=== PATIENT | male | born 1985 | race Caucasian/White ===

== ENCOUNTER 2016-10-26 13:46 | Emergency (ER) | payer OTHER ==
--- NOTE | 2016-10-26 16:01 | DIAGNOSTIC IMAGING REPORT ---
PROCEDURE: CT ABDOMEN/PELVIS W/O CONTRAST INDICATION: Right flank pain, initial encounter TECHNIQUE: Noncontrast axial images were obtained of the entire abdomen and pelvis with sagittal and coronal reformations. COMPARISON: CT abdomen/pelvis 10/19/2011 FINDINGS: ABDOMEN: There are several bilateral 1 mm nonobstructing renal calculi. There is mild right hydronephrosis with no evidence of obstructing calculus, possibly due to a recently passed calculus. Left pelvic phleboliths are present. Lung base are clear. Heart size is normal. Liver, gallbladder, pancreas, spleen and adrenal glands are normal. Normal abdominal aorta. Normal appendix. Nonspecific bowel gas pattern. PELVIS: Normal prostate and bladder. No pelvic mass or inflammatory changes. No suspicious osseous lesions. IMPRESSION: 1. Mild right hydronephrosis without evidence of obstructing calculus, possibly from a recently passed calculus 2. Several 1 mm nonobstructing bilateral renal calculi 3. Results discussed with Rebeca Slaughter All CT scans at this facility use dose modulation, iterative reconstruction, and/or weight-based dosing when appropriate to reduce radiation dose to as low as reasonably achievable.
--- NOTE | 2016-10-26 16:14 | ED ORDER SUMMARY ---
..... Patient: DAYANA BRAVO OrderSheet [facility] VisitID: [id number] [address] [place] [address] 30y, M Registration Date/Time: 10/26/2016 ORDER SHEET Weight: 97.5 kg (stated) Allergies: No Known Drug Allergy GENERAL ORDERS: UA-Culture if indicated Urgent (13:59 10/26/2016 EInderbitzen R.N. verbal order read back to HBivens A.R.N.P.) (Ack 14:07 NHouse ER Tech1) (14:07 NHouse ER Tech1) CT Abd/Pel wo Cont Urgent (14:33 10/26/2016 HBivens A.R.N.P.) (Ack 14:43 NHouse ER Tech1) (15:03 LNations ER Tech1) Vitals (14:37 10/26/2016 HBivens A.R.N.P.) (14:57 LNations ER Tech1) MEDICATION ORDERS: Toradol IM 60 mg (NOW) (14:21 10/26/2016 HBivens A.R.N.P.) (14:25 EInderbitzen R.N.) Hydrocodone-APAP PO 5/325 mg (NOW, HIGH ALERT MEDICATION) (16:30 10/26/2016 EInderbitzen R.N. verbal order read back to HBivens A.R.N.P.) (16:31 EInderbitzen R.N.) Zofran ODT PO 4 mg (NOW) (16:30 10/26/2016 EInderbitzen R.N. verbal order read back to HBivens A.R.N.P.) (16:31 EInderbitzen R.N.) IV FLUIDS: ORDER SHEET NOTES: [Electronically signed by Bety Ornelas R.N. (19:31 10/26/2016)] [Electronically signed by Rebeca Slaughter.R.N.P. (22:24 10/26/2016)] [Electronically locked/signed by Bety Ornelas R.N. (19:10/26/2016)]
--- NOTE | 2016-10-26 16:14 | ED ORDER SUMMARY ---
..... Patient: DAYANA BRAVO OrderSheet [facility] VisitID: [id number] [address] [place] [address] 30y, M Registration Date/Time: 10/26/2016 ORDER SHEET Weight: 97.5 kg (stated) Allergies: No Known Drug Allergy GENERAL ORDERS: UA-Culture if indicated Urgent (13:59 10/26/2016 EInderbitzen R.N. verbal order read back to HBivens A.R.N.P.) (Ack 14:07 NHouse ER Tech1) (14:07 NHouse ER Tech1) CT Abd/Pel wo Cont Urgent (14:33 10/26/2016 HBivens A.R.N.P.) (Ack 14:43 NHouse ER Tech1) (15:03 LNations ER Tech1) Vitals (14:37 10/26/2016 HBivens A.R.N.P.) (14:57 LNations ER Tech1) MEDICATION ORDERS: Toradol IM 60 mg (NOW) (14:21 10/26/2016 HBivens A.R.N.P.) (14:25 EInderbitzen R.N.) Hydrocodone-APAP PO 5/325 mg (NOW, HIGH ALERT MEDICATION) (16:30 10/26/2016 EInderbitzen R.N. verbal order read back to HBivens A.R.N.P.) (16:31 EInderbitzen R.N.) Zofran ODT PO 4 mg (NOW) (16:30 10/26/2016 EInderbitzen R.N. verbal order read back to HBivens A.R.N.P.) (16:31 EInderbitzen R.N.) IV FLUIDS: ORDER SHEET NOTES: [Electronically signed by Bety Ornelas R.N. (19:31 10/26/2016)] [Electronically signed by Rebeca Slaughter.R.N.P. (22:24 10/26/2016)] [Electronically locked/signed by Bety Ornelas R.N. (19:10/26/2016)]
--- NOTE | 2016-10-26 16:14 | ED CLINICAL REPORT ---
Clinical Report - Physicians/Mid Levels [facility] [address] [place] [address] 10/26/2016 13:47 [id number] Time Seen: 14:05; initial patient contact, initial documentation, patient care assumed. Arrived- By private vehicle. Historian- patient. HISTORY OF PRESENT ILLNESS Chief Complaint: DYSURIA. This started last night and is still present. The problem is described as moderate. No penile discharge, urinary frequency, genital lesion, testicular pain or Reeder catheter problem. No inguinal swelling. He has had severe burning discomfort with urination. It is described as " painful " and has occurred during urination. He has had urgency of urination. He has had mild right-sided flank pain. Able to void. Not voiding only small amounts. The patient has had unprotected intercourse with a single partner several times (no concerns for std, says his only partner is his ). Sexual history is noncontributory. No homosexual activity. Similar symptoms previously: None. Recent medical care: Not recently seen/assessed. REVIEW OF SYSTEMS No fever, hematuria, vomiting, diarrhea or chest pain. No difficulty breathing. He has had flank pain and mild, constant abdominal pain. The pain is described as located in the right side of the abdomen. All systems otherwise negative, except as recorded above. PAST HISTORY See nurses notes. ( PROBLEMS: Enlarged prostate. Hypertension. Ureterolithiasis. --13:53 Bety Ornelas, R.N. ADDITIONAL SURGERIES: Tonsillectomy. --13:53 Bety Ornelas, R.N.). SOCIAL HISTORY Heavy tobacco smoker. No alcohol use or drug use. No recent travel. Is a local resident. FAMILY HISTORY Negative. ADDITIONAL NOTES The nursing notes have been reviewed with agreement regarding the chief complaint, HPI, ROS, PMH and patient medications and allergies. PHYSICAL EXAM Vital Signs: 10/26/2016 13:52 BP: 200/118. HR: 120. RR: 20. O2 saturation: 100%. Temp: 97.9 F. Pain level now: 07/25. Have been reviewed as abnormal and appear to be correct. Hypertensive. Tachycardic. Respiratory rate normal. Temperature normal. Oxygen saturation normal. Appearance: Alert. Oriented X3. No acute distress. ENT: Normal external inspection. Pharynx normal. Neck: Neck supple. CVS: Tachycardia (ventricular rate = 110). Heart sounds abnormal. Respiratory: No respiratory distress. Breath sounds normal. Abdomen: Soft and nontender. Bowel sounds normal. No organomegaly. No mass. Back: Normal external inspection. Skin: Skin warm and dry. Normal skin color. No rash. Normal skin turgor. Extremities: Extremities exhibit normal ROM. No lower extremity edema. Neuro: Oriented X 3. No motor deficit. No sensory deficit. LABS, X-RAYS, AND EKG Abdominal CT: . IMPRESSION: 1. Mild right hydronephrosis without evidence of obstructing calculus, possibly from a recently passed calculus 2. Several 1 mm nonobstructing bilateral renal calculi 3. Results discussed with Rebeca Slaughter All CT scans at this facility use dose modulation, iterative reconstruction, and/or weight-based dosing when appropriate to reduce radiation dose to as low as reasonably achievable. Electronically Final signed by:Bernardo Do MD 10/26/2016 4:01:29 PM. The study was interpreted by the radiologist and discussed with the radiologist. Interpretation time: 16:13. PROGRESS AND PROCEDURES Course of Care: 14:33 10/26/16. pt aware of urine results and need for ct 14:39 10/26/16. pt has very brief john, nothing alarming, see report for full details 1612. pt stated the shot helped take the edge off and relieved some of the pressure. 10/26/2016 14:57 BP: 167/99. HR: 114. O2 saturation: 98%. Vital Signs: have been reviewed as abnormal and appear to be correct. Hypertensive. Tachycardic. Patient counseled in person regarding the patient's stable condition, test results and diagnosis. 16:12. Differential Diagnosis: Other possible considerations: uti, pyelo, kidney stone, bph, std. Above considerations are based on history, physical exam, laboratory data and other information. Differential diagnosis was discussed with patient. Disposition: Discharged home in good and improved condition (16:14). Condition: good and stable. CLINICAL IMPRESSION Ureterolithiasis (multiple stones) in the right kidney and left kidney with renal colic and hematuria. No hydronephrosis, acute pyelonephritis or urinary tract infection. Essential hypertension. INSTRUCTIONS Drink plenty of fluids for the next 24 hours until better. (strain all urine). Warnings: Further evaluation is necessary (to reassess for Hypertension). It is very important to follow up with a physician. GENERAL WARNINGS: Return or contact your physician immediately if your condition worsens or changes unexpectedly, if not improving as expected, or if other problems arise. Specifically return if problem worsens. Prescription Medications: Zofran 4 mg: Take 1 orally every six hours as needed for nausea/vomiting. Dispense ten (10). No refills. Substitution is permissible. [place] 5 mg / 325 mg tablets: take 1 to 2 orally every 6 hours as needed for pain. Dispense fifteen (15). No refills. Substitution is permissible. Toradol 10 mg tablets: Take 1 tablet orally every 6 hours as needed. Dispense fifteen (15). No refills. Substitution is permissible. Flomax 0.4 mg: take 1 orally every 24 hours. Dispense fifteen (15). No refills. Substitution is permissible. Follow-up: Follow up with your doctor in about two days even if well. Call for an appointment. Summary of care provided to patient. Screening today revealed the patient's blood pressure to be in the hypertensive range. The patient should follow up with a primary care provider for blood pressure management. Understanding of the discharge instructions verbalized by patient. Follow-up with: Conrad Lamb MD, Urology, , [address] [place] [address], [id number] Follow up in about two days as needed. Call for an appointment. Summary of care provided to patient. (Electronically signed by Rebeca Slaughter A.R.N.P. 10/26/2016 22:24)
--- NOTE | 2016-10-26 16:14 | ED NURSING NOTES ---
Clinical Report - Nurses [facility] [address] [place] [address] 10/26/2016 13:47 Patient: DAYANA BRAVO TRIAGE Triage time 13:52 Oct 26 2016. Acuity: LEVEL 3. Chief Complaint: PAIN WITH URINATION. 13:52 10/26/16. --13:56 Bety Ornelas R.N. 13:52 10/26/16. BP: 200/118. HR: 120. RR: 20. O2 saturation: 100%. Temp: 97.9 F. Pain level now: 07/25. --13:56 Bety Ornelas R.N. Weight: 97.5 kg stated. Height/Length: 74 inches Per Patient. BMI: 27.6. --13:52 Bety Ornelas R.N. Medications Lisinopril Oral. --13:52 Bety Ornelas R.N. AmLODIPine Besylate Oral. --13:52 Bety Ornelas R.N. Medication/allergy information source: the patient. --13:56 Bety Ornelas R.N. Allergies No Known Drug Allergy. --13:52 Bety Ornelas R.N. History Arrived by private vehicle. Historian: patient. This started last night. He has had discomfort with urination and urgency of urination. No fever. Treatment BALLISTICS TESTER: None. PAST MEDICAL HX: Immunizations: seasonal influenza. SOCIAL HX: Heavy tobacco smoker- 1 pack per day. No alcohol use or drug use. No infectious disease exposure. ABUSE ASSESSMENT: No report of abuse. --13:56 Bety Ornelas R.N. PROBLEMS: Enlarged prostate. Hypertension. Ureterolithiasis. --13:53 Bety Ornelas R.N. ADDITIONAL SURGERIES: Tonsillectomy. --13:53 Bety Ornelas R.N. Interventions ID band on patient. --13:56 Bety Ornelas R.N. PHYSICAL ASSESSMENT 13:59 10/26/16. GENERAL / NEURO / PSYCH: Alert. Oriented X 4. HEENT: Mucous membranes are pink. RESPIRATORY: Respirations not labored. Breath sounds within normal limits. CVS: Capillary refill less than 2 seconds. GI / : Abdomen soft. Pain with urination. He has had frequency of urination. Urgency of urination. SKIN: Skin is warm and dry. --13:59 Bety Ornelas R.N. NURSING PROGRESS NOTES 13:52 10/26/16. The initial plan of care for this patient includes an assessment with efforts to address the presence of pain; impairment of the genitourinary system. This plan of care was discussed with the patient. Reassurance given. Two patient identifiers checked. Call light placed in reach. Side rails up x 1. Bed placed in lowest position. Brakes of bed on. Patient ready for evaluation. --13:59 Bety Ornelas R.N. 14:02 10/26/16. Patient ID band checked for patient name and birthdate: patient confirmed. Instructions provided to collect clean catch urine and patient verbalized understanding. Clean catch urine collected with return of giovanni-colored clear urine; sample sent to lab for urinalysis. Specimen labeled in the presence of the patient. --14:02 Bety Ornelas R.N. 14:24 10/26/2016 Toradol (Ketorolac Tromethamine) IM 60 mg given. Given in the right gluteus martinez. Allergies verified and confirmed 5 rights. --14:25 Bety Ornelas R.N. 14:57 10/26/16. BP: 167/99. HR: 114. O2 saturation: 98%. --14:57 Zuleika Parra ER Tech1 15:21 10/26/16. The patient is calm and resting quietly. Overall patient status is improved- he states feels better. Patient waiting for CT results and disposition. --15:21 Bety Ornelas R.N. 16:12 10/26/16. ( Patient now requesting more pain medication). --16:12 Bety Ornelas R.N. 16:30 10/26/2016 Hydrocodone-APAP (Hydrocodone-Acetaminophen) PO 5/325 mg Tablets 1 tab given. Allergies verified, confirmed 5 rights and sedative warning given to the patient. --16:31 Bety Ornelas R.N. 16:30 10/26/2016 Zofran ODT (Ondansetron) PO Oral Disintegrating Tablets 4 mg given. Allergies verified and confirmed 5 rights. --16:31 Bety Ornelas R.N. DISPOSITION / DISCHARGE 16:31 10/26/16. Departure time: 16 :Oct 26 2016. Condition at departure: improved and stable. The goals identified in the patient's plan of care were met. No learning barriers present. Discharge instructions provided and reviewed with the patient. Reviewed medication(s) side effects, precautions, dosing and course information. Prescription(s) given to the patient. Reviewed fever care instructions. Reviewed referral to a urologist and primary care physician for followup. Patient verbalized understanding. Written instructions provided in Spanish. The patient was discharged home and accompanied by family. He left the Emergency Department ambulatory and via private vehicle. Family member driving. FALL RISK ASSESSMENT: Fall risk assessment completed. No fall risk identified. --19:30 Bety Ornelas R.N. 14:57 10/26/16. BP: 167/99. HR: 114. O2 saturation: 98%. --19:30 Bety Ornelas R.N. Locked/Released at 10/26/2016 19:31 by Bety Ornelas R.N.
--- NOTE | 2016-10-26 22:25 | ED MAR SUMMARY ---
..... Medication Administration Record [facility] [address] [place] [address] Patient: DAYANA BRAVO Visit ID: [id number] 30y, M Weight: 97.5 kg Height/Length: 74 in BMI: 27.6 ALLERGIES: No Known Drug Allergy Given 14:24 10/26/2016 Bety Ornelas R.N. Medication Administered: TORADOL [IM] (KETOROLAC TROMETHAMINE), Dose: 60 mg IM. Medication Ordered: Toradol IM 60 mg (NOW). Given 16:30 10/26/2016 Bety Ornelas R.N. Medication Administered: HYDROCODONE-APAP [PO] (HYDROCODONE-ACETAMINOPHEN), Dose: 1 tab 5/325 mg Tablets PO. Medication Ordered: Hydrocodone-APAP PO 5/325 mg (NOW, HIGH ALERT MEDICATION). Given 16:30 10/26/2016 Bety Ornelas R.NSita Medication Administered: ZOFRAN ODT [PO] (ONDANSETRON), Dose: 4 mg Oral Disintegrating Tablets PO. Medication Ordered: Zofran ODT PO 4 mg (NOW).
--- NOTE | 2016-10-26 22:25 | ED MED RECONCILIATION SUMMARY ---
Patient: DAYANA BRAVO Medication Reconciliation Report [facility] VisitID: [id number] [address] [place] [address] 30y, M Registration Date/Time: 10/26/2016 Weight: 97.5 kg Height/Length: 74 in. BMI: 27.6 ALLERGIES: No Known Drug Allergy The patient's Home Medications are listed below: THE FOLLOWING MEDICATIONS NEED TO BE RECONCILED: AmLODIPine Besylate Oral Lisinopril Oral The source(s) of the original Home Medication information: patient The following Medications were given to the patient in the Emergency Department: Toradol [IM] IM 60 mg, administered: 10/26/2016 2:24:00 PM Hydrocodone-APAP [PO] PO 1 tab, administered: 10/26/2016 4:30:00 PM Zofran ODT [PO] PO 4 mg, administered: 10/26/2016 4:30:00 PM The following Medications were prescribed to the patient: Zofran 4 mg: Take 1 orally every six hours as needed for nausea/vomiting. Dispense ten (10). No refills. Substitution is permissible. -- Rebeca Slaughter, A.R.N.P. [place] 5 mg / 325 mg tablets: take 1 to 2 orally every 6 hours as needed for pain. Dispense fifteen (15). No refills. Substitution is permissible. -- Rebeca Slaughter, A.R.N.P. Toradol 10 mg tablets: Take 1 tablet orally every 6 hours as needed. Dispense fifteen (15). No refills. Substitution is permissible. -- Rebeca Slaughter, A.R.N.P. Flomax 0.4 mg: take 1 orally every 24 hours. Dispense fifteen (15). No refills. Substitution is permissible. -- Rebeca Slaughter, A.R.N.P.
--- NOTE | 2016-10-26 22:25 | ED DISCHARGE INSTRUCTIONS ---
Patient: DAYANA BRAVO General Instructions [facility] VisitID: [id number] [place] [address] 30y, M Registration Date/Time: 10/26/2016 Ureterolithiasis (multiple stones) in the right kidney and left kidney with renal colic and hematuria. No hydronephrosis, acute pyelonephritis or urinary tract infection. Essential hypertension. INSTRUCTIONS Drink plenty of fluids for the next 24 hours until better. (strain all urine). Warnings: Further evaluation is necessary (to reassess for Hypertension). It is very important to follow up with a physician. GENERAL WARNINGS: Return or contact your physician immediately if your condition worsens or changes unexpectedly, if not improving as expected, or if other problems arise. Specifically return if problem worsens. Prescription Medications: Zofran 4 mg: Take 1 orally every six hours as needed for nausea/vomiting. Dispense ten (10). No refills. Substitution is permissible. [place] 5 mg / 325 mg tablets: take 1 to 2 orally every 6 hours as needed for pain. Dispense fifteen (15). No refills. Substitution is permissible. Toradol 10 mg tablets: Take 1 tablet orally every 6 hours as needed. Dispense fifteen (15). No refills. Substitution is permissible. Flomax 0.4 mg: take 1 orally every 24 hours. Dispense fifteen (15). No refills. Substitution is permissible. Follow-up: Follow up with your doctor in about two days even if well. Call for an appointment. Summary of care provided to patient. Screening today revealed the patient's blood pressure to be in the hypertensive range. The patient should follow up with a primary care provider for blood pressure management. Understanding of the discharge instructions verbalized by patient. Follow-up with: Conrad Lamb MD, Urology, , [address] [place] [address], [facility], [id number] Follow up in about two days as needed. Call for an appointment. Summary of care provided to patient. ADDITIONAL INFORMATION Kidney Stone (W/ Colic) The sharp cramping pain and nausea/vomiting that you have is due to a small stone which has formed in the kidney and is now passing down a narrow tube (ureter) on its way to your bladder. Once it reaches your bladder, the pain will stop. The stone may pass in your urine stream in one piece. [The size may be 1/16" to 1/4" (1-6mm)]. Or, the stone may also break up into lianne fragments which you may not even notice. Once you have had a kidney stone, you are at risk for developing another one in the future. Home Care: Drink plenty of fluids (at least 8 to 10 glasses of water a day). Most stones will pass on their own, but may take from a few hours to a few days. Sometimes the stone is too large to pass by itself and special methods will have to be used to remove the stone. Each time you urinate, do so in a jar. Pour the urine from the jar through the strainer and into the toilet. Continue doing this until 24 hours after your pain stops. By then, if there was a kidney stone, it should pass from your bladder. Some stones dissolve into sand-like particles and pass right through the strainer. In that case, you wont ever see a stone. Save any stone that you find in the strainer and bring it to your doctor for analysis. It may be possible to prevent certain types of stones from forming. Therefore, it is important to know what kind of stone you have. Try to stay as active as possible since this will help the stone pass. Do not stay in bed unless your pain prevents you from getting up. You may notice a red, pink or brown color to your urine. This is normal while passing a kidney stone. Follow Up with your doctor or return to this facility if the pain lasts more than 48 hours. Get Prompt Medical Attention if any of the following occur: Pain that is not controlled by the medicine given Repeated vomiting or unable to keep down fluids Weakness, dizziness or fainting Fever of 100.4F (38C) or higher, or as directed by your healthcare provider Passage of solid red or brown urine (can't see through it) or urine with lots of blood clots Unable to pass urine for 8 hours and increasing bladder pressure Blood In The Urine Blood in the urine ("hematuria") has many possible causes. If it occurs after an injury (such as a car accident or fall), it is most often a sign of bruising to the kidney or bladder. Common medical causes of blood in the urine include urinary tract infection, kidney stone, inflammation, tumors, or certain other diseases of the kidney or bladder. Menstruation can cause blood to appear in the urine sample, although it is not coming from the urinary tract. If only a trace amount of blood is present, it will show up on the urine test, even though the urine may be yellow and not pink or red. This may occur with any of the above conditions, as well as heavy exercise or high fever. In this case, your doctor may want to repeat the urine test on another day. This will show if the blood is still present. If so, then other tests can be done to find out the cause. Home Care: If your urine does not appear bloody (pink, brown or red) then you do not need to restrict your activity in any way. If you can see blood in your urine, rest and avoid heavy exertion until your next exam. Do not use aspirin or anti-inflammatory medicine like ibuprofen (Motrin, Advil) or naproxen (Naprosyn, Aleve). These thin the blood and may increase bleeding. Follow Up with your doctor or as advised by our staff. If you were injured and had blood in your urine, you should have a repeat urine test in 1-2 days. Contact your doctor or return to this facility for this test. [NOTE: A radiologist will review any X-rays that were taken. We will notify you of any new findings that may affect your care.] Get Prompt Medical Attention if any of the following occur: Bright red blood or blood clots in the urine (if a new symptom) Weakness, dizziness or fainting New groin, abdominal or back pain Fever of 100.4F (38C) or higher, or as directed by your healthcare provider Repeated vomiting Bleeding from nose, gums or easy bruising High Blood Pressure -- To Be Confirmed [No Tx] Your blood pressure was higher today than normal. Sometimes anxiety or pain can cause a temporary rise in blood pressure that later returns to normal. If your blood pressure is high on one measurement, this does not mean that you have hypertension (a chronic illness). However, you must have your blood pressure measured again within the next few days to find out if its still high. A normal blood pressure is 120/80 or less. The first (top) number is the "systolic" pressure. The second (bottom) number is the "diastolic" pressure. Hypertension exists when either the top number is 140 or higher, OR the bottom number is 90 or higher on repeated measurements. Blood pressure in the range of 120-140 (systolic) or 80-89 (diastolic) is considered "pre-hypertension". This means your are at risk for getting hypertension. You should have regular blood pressure checks to be sure your blood pressure is not rising. Home Care: Measure your blood pressure on 3 different days and write down the results. This can be done at your doctor's office or this facility. Some pharmacies and grocery stores offer automated blood pressure machines for your use. Follow Up: If your blood pressure is "high" (over 120/80) on 2 out of 3 days, you will need to follow up with your doctor for further evaluation and treatment. DO NOT PUT THIS OFF! Untreated high blood pressure increases the risk for heart attack, also known as acute myocardial infarction, or AMI, and stroke. It is a treatable condition. Get Prompt Medical Attention if any of the following occur: Chest pain or shortness of breath Severe headache Throbbing or rushing sound in the ears Nosebleed Sudden severe abdominal pain Extreme drowsiness, confusion or fainting Dizziness or vertigo (dizziness with spinning sensation) Weakness of an arm or leg or one side of the face Difficulty with speech or vision Ondansetron Oral disintegrating tablet What is this medicine? ONDANSETRON (on MEGHANN se regine) is used to treat nausea and vomiting caused by chemotherapy. It is also used to prevent or treat nausea and vomiting after surgery. How should I use this medicine? These tablets are made to dissolve in the mouth. Do not try to push the tablet through the foil backing. With dry hands, peel away the foil backing and gently remove the tablet. Place the tablet in the mouth and allow it to dissolve, then swallow. While you may take these tablets with water, it is not necessary to do so. Talk to your tea tree farm worker regarding the use of this medicine in children. Special care may be needed. What side effects may I notice from receiving this medicine? Side effects that you should report to your doctor or health complex care nurse practitioner as soon as possible: allergic reactions like skin rash, itching or hives, swelling of the face, lips, or tongue breathing problems dizziness fast or irregular heartbeat feeling faint or lightheaded, falls fever and chills swelling of the hands and feet tightness in the chest Side effects that usually do not require medical attention (report to your doctor or health complex care nurse practitioner if they continue or are bothersome): constipation or diarrhea headache What may interact with this medicine? Do not take this medicine with any of the following medications: -apomorphine -cisapride -dofetilide -dronedarone -pimozide -thioridazine -ziprasidone This medicine may also interact with the following medications: -carbamazepine -phenytoin -rifampicin -tramadol -other medicines that prolong the QT interval (cause an abnormal heart rhythm) What if I miss a dose? If you miss a dose, take it as soon as you can. If it is almost time for your next dose, take only that dose. Do not take double or extra doses. Where should I keep my medicine? Keep out of the reach of children. Store between 2 and 30 degrees C (36 and 86 degrees F). Throw away any unused medicine after the expiration date. What should I tell my health care provider before I take this medicine? They need to know if you have any of these conditions: heart disease history of irregular heartbeat liver disease low levels of magnesium or potassium in the blood an unusual or allergic reaction to ondansetron, granisetron, other medicines, foods, dyes, or preservatives or trying to get breast-feeding What should I watch for while using this medicine? Check with your doctor or health complex care nurse practitioner as soon as you can if you have any sign of an allergic reaction. Hydrocodone Bitartrate, Acetaminophen Oral tablet What is this medicine? ACETAMINOPHEN; HYDROCODONE (a set a LEILA marilynn fen; sean droe KOE done) is a pain reliever. It is used to treat mild to moderate pain. How should I use this medicine? Take this medicine by mouth. Swallow it with a full glass of water. Follow the directions on the prescription label. If the medicine upsets your stomach, take the medicine with food or milk. Do not take more than you are told to take. Talk to your tea tree farm worker regarding the use of this medicine in children. This medicine is not approved for use in children. What side effects may I notice from receiving this medicine? Side effects that you should report to your doctor or health complex care nurse practitioner as soon as possible: allergic reactions like skin rash, itching or hives, swelling of the face, lips, or tongue breathing problems confusion feeling faint or lightheaded, falls stomach pain yellowing of the eyes or skin Side effects that usually do not require medical attention (report to your doctor or health complex care nurse practitioner if they continue or are bothersome): nausea, vomiting stomach upset What may interact with this medicine? alcohol antihistamines isoniazid medicines for depression, anxiety, or psychotic disturbances medicines for sleep muscle relaxants naltrexone narcotic medicines (opiates) for pain phenobarbital ritonavir tramadol What if I miss a dose? If you miss a dose, take it as soon as you can. If it is almost time for your next dose, take only that dose. Do not take double or extra doses. Where should I keep my medicine? Keep out of the reach of children. This medicine can be abused. Keep your medicine in a safe place to protect it from theft. Do not share this medicine with anyone. Selling or giving away this medicine is dangerous and against the law. Store at room temperature between 15 and 30 degrees C (59 and 86 degrees F). Protect from light. Keep container tightly closed. Throw away any unused medicine after the expiration date. Discard unused medicine and used packaging carefully. Pets and children can be harmed if they find used or lost packages. What should I tell my health care provider before I take this medicine? They need to know if you have any of these conditions: brain tumor Crohn's disease, inflammatory bowel disease, or ulcerative colitis drink more than 3 alcohol-containing drinks per day drug abuse or addiction head injury heart or circulation problems kidney disease or problems going to the bathroom liver disease lung disease, asthma, or breathing problems an unusual or allergic reaction to acetaminophen, hydrocodone, other opioid analgesics, other medicines, foods, dyes, or preservatives or trying to get breast-feeding What should I watch for while using this medicine? Tell your doctor or health complex care nurse practitioner if your pain does not go away, if it gets worse, or if you have new or a different type of pain. You may develop tolerance to the medicine. Tolerance means that you will need a higher dose of the medicine for pain relief. Tolerance is normal and is expected if you take the medicine for a long time. Do not suddenly stop taking your medicine because you may develop a severe reaction. Your body becomes used to the medicine. This does NOT mean you are addicted. Addiction is a behavior related to getting and using a drug for a non-medical reason. If you have pain, you have a medical reason to take pain medicine. Your doctor will tell you how much medicine to take. If your doctor wants you to stop the medicine, the dose will be slowly lowered over time to avoid any side effects. You may get drowsy or dizzy when you first start taking the medicine or change doses. Do not drive, use machinery, or do anything that may be dangerous until you know how the medicine affects you. Stand or sit up slowly. There are different types of narcotic medicines (opiates) for pain. If you take more than one type at the same time, you may have more side effects. Give your health care provider a list of all medicines you use. Your doctor will tell you how much medicine to take. Do not take more medicine than directed. Call emergency for help if you have problems breathing. The medicine will cause constipation. Try to have a bowel movement at least every 2 to 3 days. If you do not have a bowel movement for 3 days, call your doctor or health complex care nurse practitioner. Too much acetaminophen can be very dangerous. Do not take Tylenol (acetaminophen) or medicines that contain acetaminophen with this medicine. Many non-prescription medicines contain acetaminophen. Always read the labels carefully. Ketorolac Tromethamine Oral tablet What is this medicine? KETOROLAC (makenzie toe ROLE ak) is a non-steroidal anti-inflammatory drug (NSAID). It is used for a short while to treat moderate to severe pain, including pain after surgery. It should not be used for more than 5 days. How should I use this medicine? Take this medicine by mouth with a full glass of water. Follow the directions on the prescription label. Take your medicine at regular intervals. Do not take your medicine more often than directed. Do not take more than the recommended dose. A special MedGuide will be given to you by the pharmacist with each prescription and refill. Be sure to read this information carefully each time. Talk to your tea tree farm worker regarding the use of this medicine in children. While this drug may be prescribed for children as young as 16 years of age for selected conditions, precautions do apply. Patients over 65 years old may have a stronger reaction and need a smaller dose. What side effects may I notice from receiving this medicine? Side effects that you should report to your doctor or health complex care nurse practitioner as soon as possible: allergic reactions like skin rash, itching or hives, swelling of the face, lips, or tongue black or tarry stools breathing problems changes in vision chest pain high blood pressure nausea or vomiting redness, blistering, peeling or loosening of the skin, including inside the mouth severe abdominal pain slurred speech or weakness on one side of the body unexplained weight gain or swelling unusual bleeding or bruising unusually weak or tired yellowing of eyes or skin Side effects that usually do not require medical attention (report to your doctor or health complex care nurse practitioner if they continue or are bothersome): diarrhea dizziness headache heartburn What may interact with this medicine? Do not take this medicine with any of the following medications: aspirin and aspirin-like medicines cidofovir methotrexate NSAIDs, medicines for pain and inflammation, like ibuprofen or naproxen pemetrexed probenecid This medicine may also interact with the following medications: alcohol alendronate alprazolam carbamazepine cyclosporine diuretics flavocoxid fluoxetine ginkgo lithium medicines for high blood pressure like enalapril medicines that affect platelets like pentoxifylline medicines that treat or prevent blood clots like heparin, warfarin muscle relaxants phenytoin steroid medicines like prednisone or cortisone thiothixene What if I miss a dose? If you miss a dose, take it as soon as you can. If it is almost time for your next dose, take only that dose. Do not take double or extra doses. Where should I keep my medicine? Keep out of the reach of children. Store at room temperature between 20 and 25 degrees C (68 and 77 degrees F). Throw away any unused medicine after the expiration date. What should I tell my health care provider before I take this medicine? They need to know if you have any of these conditions: asthma bleeding problems like hemophilia cigarette smoker drink more than 3 alcohol containing drinks a day heart disease or circulation problems such as heart failure or leg edema (fluid retention) high blood pressure kidney disease liver disease stomach bleeding or ulcers an unusual or allergic reaction to ketorolac, aspirin, other NSAIDs, other medicines, foods, dyes, or preservatives or trying to get breast-feeding What should I watch for while using this medicine? Tell your doctor or health complex care nurse practitioner if your pain does not get better. Talk to your doctor before taking another medicine for pain. Do not treat yourself. This medicine does not prevent heart attack or stroke. In fact, this medicine may increase the chance of a heart attack or stroke. The chance may increase with longer use of this medicine and in people who have heart disease. If you take aspirin to prevent heart attack or stroke, talk with your doctor or health complex care nurse practitioner. Do not take medicines such as ibuprofen and naproxen with this medicine. Side effects such as stomach upset, nausea, or ulcers may be more likely to occur. Many medicines available without a prescription should not be taken with this medicine. This medicine can cause ulcers and bleeding in the stomach and intestines at any time during treatment. Do not smoke cigarettes or drink alcohol. These increase irritation to your stomach and can make it more susceptible to damage from this medicine. Ulcers and bleeding can happen without warning symptoms and can cause . You may get drowsy or dizzy. Do not drive, use machinery, or do anything that needs mental alertness until you know how this medicine affects you. Do not stand or sit up quickly, especially if you are an older patient. This reduces the risk of dizzy or fainting spells. This medicine can cause you to bleed more easily. Try to avoid damage to your teeth and gums when you brush or floss your teeth. You have been given the following additional information: Kidney Stone W/ Colic Hematuria Hypertension, To Be Confirmed Ondansetron Oral disintegrating tablet Hydrocodone Bitartrate, Acetaminophen Oral tablet Ketorolac Tromethamine Oral tablet (Electronically signed by Rebeca Slaughter A.R.N.P. 10/26/2016 22:24)
--- NOTE | 2016-10-26 22:25 | ED MAR SUMMARY ---
..... Medication Administration Record [facility] [address] [address] Patient: DAYANA BRAVO Visit ID: [id number] 30y, M Weight: 97.5 kg Height/Length: 74 in BMI: 27.6 ALLERGIES: No Known Drug Allergy Given 14:24 10/26/2016 Bety Ornelas R.N. Medication Administered: TORADOL [IM] (KETOROLAC TROMETHAMINE), Dose: 60 mg IM. Medication Ordered: Toradol IM 60 mg (NOW). Given 16:30 10/26/2016 Bety Ornelas R.N. Medication Administered: HYDROCODONE-APAP [PO] (HYDROCODONE-ACETAMINOPHEN), Dose: 1 tab 5/325 mg Tablets PO. Medication Ordered: Hydrocodone-APAP PO 5/325 mg (NOW, HIGH ALERT MEDICATION). Given 16:30 10/26/2016 Bety Ornelas R.NSita Medication Administered: ZOFRAN ODT [PO] (ONDANSETRON), Dose: 4 mg Oral Disintegrating Tablets PO. Medication Ordered: Zofran ODT PO 4 mg (NOW).
--- NOTE | 2016-10-26 22:25 | ED MED RECONCILIATION SUMMARY ---
Patient: DAYANA BRAVO Medication Reconciliation Report [facility] VisitID: [id number] [address] [place] [address] 30y, M Registration Date/Time: 10/26/2016 Weight: 97.5 kg Height/Length: 74 in. BMI: 27.6 ALLERGIES: No Known Drug Allergy The patient's Home Medications are listed below: THE FOLLOWING MEDICATIONS NEED TO BE RECONCILED: AmLODIPine Besylate Oral Lisinopril Oral The source(s) of the original Home Medication information: patient The following Medications were given to the patient in the Emergency Department: Toradol [IM] IM 60 mg, administered: 10/26/2016 2:24:00 PM Hydrocodone-APAP [PO] PO 1 tab, administered: 10/26/2016 4:30:00 PM Zofran ODT [PO] PO 4 mg, administered: 10/26/2016 4:30:00 PM The following Medications were prescribed to the patient: Zofran 4 mg: Take 1 orally every six hours as needed for nausea/vomiting. Dispense ten (10). No refills. Substitution is permissible. -- Rebeca Slaughter, A.R.N.P. [place] 5 mg / 325 mg tablets: take 1 to 2 orally every 6 hours as needed for pain. Dispense fifteen (15). No refills. Substitution is permissible. -- Rebeca Slaughter, A.R.N.P. Toradol 10 mg tablets: Take 1 tablet orally every 6 hours as needed. Dispense fifteen (15). No refills. Substitution is permissible. -- Rebeca Slaughter, A.R.N.P. Flomax 0.4 mg: take 1 orally every 24 hours. Dispense fifteen (15). No refills. Substitution is permissible. -- Rebeca Slaughter, A.R.N.P.
== END 2016-10-26 16:31 | disposition home or self-care (01) ==
LOC: ED SRH 13:46
DX: N20.2 Calculus of kidney with calculus of ureter (principal); I10 Essential (primary) hypertension; Z79.899 Other long term (current) drug therapy; F17.210 Nicotine dependence, cigarettes, uncomplicated
CPT/HCPCS: 90004

== ENCOUNTER 2016-12-14 17:12 | Observation (INO) | payer OTHER ==
--- NOTE | 2016-12-14 20:00 | ED NURSING NOTES ---
Clinical Report - Nurses [facility] [address] [place] [address] 12/14/2016 17:12 [id number] Triage time 17:14 Dec 14 2016. Acuity: LEVEL 3. Chief Complaint: CHEST PAIN. Alert. DARCY COMA SCORE: [place] Coma Scale: 15- eyes open spontaneously (4); best verbal response- oriented x 4 (5); best motor response- obeys commands (6). --17:26 Finesse Woodward R.N. 17:16 12/14/16. BP: 202/104. HR: 118. RR: 18. O2 saturation: 100%. Temp: 98.7 F (oral). Pain level now: 4/10. Additional comments: Chest Pain. --17:26 Finesse Woodward R.N. Weight: 95.2 kg stated. Height/Length: 74 inches Per Patient. BMI: 27. --17:19 Finesse Woodward R.N. Medications AmLODIPine Besylate Oral. Lisinopril Oral. --17:21 Finesse Woodward R.N. Medication/allergy information source: the patient. --17:26 Finesse Woodward R.N. Allergies No Known Drug Allergy. --17:21 Finesse Woodward R.N. History Arrived by private vehicle. Historian: patient. Unaccompanied. ( Chest Pain radiating down (L) arm. Pt states that the pain started while he was working.). Onset. (2 hours ago). He has had difficulty breathing ("chest feels heavy"). 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 PAST MEDICAL HX: Hypertension. Immunizations: status is unknown. SOCIAL HX: Heavy tobacco smoker (cigarette)- 1 pack per day. History of drug use: marijuana. No alcohol use. No infectious disease exposure. ABUSE ASSESSMENT: No report of abuse. FALL RISK ASSESSMENT: Fall risk assessment completed. No fall risk identified. NUTRITIONAL RISK ASSESSMENT: The nutritional risk assessment revealed no deficiencies. FUNCTIONAL ASSESSMENT: Functional assessment: no impairments noted. LEARNING NEEDS ASSESSMENT: The learning needs assessment revealed no barriers. SKIN INTEGRITY ASSESSMENT: Skin integrity risk assessment completed. No skin integrity risk identified. --17:26 Finesse Woodward R.N. PROBLEMS: Back Pain. Enlarged prostate. Myofascial Strain. Viral Disease. Otitis Media. Chest Wall Pain. Ureterolithiasis. Immunizations. --17:23 Finesse Woodward R.N. Cervical Radiculopathy [RuleOut]. --17:23 Finesse Woodward R.N. Interventions ID band on patient. To treatment room. --17:26 Finesse Woodward R.N. PHYSICAL ASSESSMENT Ambulatory to room. GENERAL / NEURO / PSYCH: Alert. Oriented X 4. Appears in pain. HEENT: Mucous membranes are pink. RESPIRATORY: Respirations not labored. CVS: Normal sinus rhythm noted. Heart sounds within normal limits. Capillary refill less than 2 seconds. GI / : Abdomen soft. EXTREMITIES: No lower extremity edema. SKIN: Skin is warm and dry. Normal skin turgor. --17:27 Finesse Woodward R.N. NURSING PROGRESS NOTES 17:19 12/14/2016 Site #1 started via IV in the left antecubital space with an 20g angiocath, with aseptic technique and good blood return; one attempt. Blood drawn: rainbow set. Labeled in the presence of the patient and sent to the lab. Saline lock flushed with 10 mL saline (start by RADHA Adame). --17:29 Finesse Woodward R.N. Oxygen administered by nasal cannula at 2 liters. Patient gowned. Reassurance given to the patient. Patient identifiers checked. Call light placed in reach. Side rails up x 1. Bed placed in lowest position. Brakes of bed on. Patient ready for evaluation- chart flagged and ED physician notified. --17:31 Finesse Woodward R.N. EKG time: (1721). EKG was ordered, performed by a tech and shown to the ED physician. --17:52 Zuleika Parra ER Tech1 18:25 12/14/2016 Lopressor (Metoprolol Tartrate) PO Oral Suspension 50 mg given. Allergies verified and confirmed 5 rights. --18:27 Finesse Woodward R.N. 18:28 12/14/2016 Nitroglycerin SL Tablets 0.4 mg given. Allergies verified and confirmed 5 rights. --18:28 Finesse Woodward R.NSita 18:29 12/14/16. BP: 163/96. HR: 121. RR: 15. O2 saturation: 100% on nasal cannula at 2 liters/minute. Pain level now: 01/23. --18:30 Finesse Woodward R.NSita 18:34 12/14/2016 Nitroglycerin SL Tablets 0.4 mg given. Allergies verified and confirmed 5 rights. --18:48 Finesse Woodward R.NSita 18:38 12/14/2016 Nitroglycerin SL Tablets 0.4 mg given. Allergies verified and confirmed 5 rights. --18:49 Finesse Woodward R.N. 18:55 12/14/16. BP: 137/87. HR: 113. RR: 20. O2 saturation: 99% on room air. Pain level now: 01/23. --18:55 Laura Suero Care transferred and report received (Finesse Patterson). --18:56 Laura Suero 19:11 12/14/16. BP: 132/88. HR: 93. RR: 20. O2 saturation: 100% on room air. Pain level now: 010. --19:13 Laura Suero 19:45 12/14/2016 Site #1 relocated to the right hand with an 20g angiocath, with aseptic technique and good blood return; one attempt. Saline lock flushed with 10 mL saline. --19:45 Laura Suero 20:50 12/14/2016 Site #[address] upon admission; patent, no pain and no signs of infection or infiltration. Converted to saline lock and flushed with 10 mL saline. --23:44 Laura Suero. DISPOSITION / DISCHARGE 20:23 12/14/16. Condition at departure: stable. The goals identified in the patient's plan of care were met. Admitted to Acute Care. FALL RISK ASSESSMENT: Fall risk assessment completed. No fall risk identified. --20:24 Laura Suero 20:22 12/14/16. BP: 154/103. HR: 77. RR: 20. O2 saturation: 100% on room air. Temp: 98.3 F (oral). Pain level now: 0/10. --20:24 Laura Suero 20:57 12/14/16. BP: 130/84. --20:57 Laura Suero Report was given to a nurse via a phone call. Report included patient's care, treatment, medications, reviewed medication reconcilliation, and condition (including any recent changes or anticipated changes). All questions were answered. Report was acknowledged. (Richard GARCIA). Bed obtained. --20:59 Laura Suero 20:59 12/14/16. Patient's personal items include: shirt, pants and shoes, watch, wallet, ID badge; items were placed in belongings bag and transported with the patient. --23:44 Laura Suero. Locked/Released at 12/15/2016 1:43 by Laura Suero,
--- NOTE | 2016-12-14 20:00 | ED ORDER SUMMARY ---
..... Patient: DAYANA BRAVO OrderSheet [facility] VisitID: [id number] [place] [address] 31y, M Registration Date/Time: 12/14/2016 ORDER SHEET Weight: 95.2 kg (stated) Allergies: No Known Drug Allergy GENERAL ORDERS: Rn Flight (Continuous) (Chest Pain) (17:28 12/14/2016 Ike R.N. verbal order read back to Lucila ROBLERO) (17:29 Ike R.N.) Oxygen (2 L/min) (NC) (17:28 12/14/2016 Ike R.N. verbal order read back to Lucila ROBLERO) (17:29 Ike R.N.) Pulse oximeter (17:28 12/14/2016 Ike R.N. verbal order read back to Lucila ROBLERO) (17:29 Ike R.N.) EKG - ER Stat (17:28 12/14/2016 Ike R.N. verbal order read back to Lucila ROBLERO) (17:29 Ike R.N.) Cardiac Panel Stat (17:29 12/14/2016 Ike R.N. verbal order read back to Lucila ROBLERO) (17:30 Ike R.N.) MEDICATION ORDERS: NitroGLYCERIN SL 0.4 mg (Do not crush or chew, NOW, x3 PRN Chest Pain) (17:45 12/14/2016 Lucila ROBLERO) (Ack 18:21 Deidre R.N.) (18:28 Ike R.N.) Lopressor PO 50 mg (HIGH ALERT MEDICATION, NOW) (17:46 12/14/2016 Lucila ROBLERO) (Ack 18:21 Deidre R.N.) (18:27 Ike R.N.) IV FLUIDS: IV Saline Lock (17:28 12/14/2016 Ike R.N. verbal order read back to Lucila ROBLERO) (17:29 Ike R.N.) ORDER SHEET NOTES: [Electronically signed by Laura Suero (01:43 12/15/2016)] [Electronically signed by Drea Tomlinson MD (17:33 12/16/2016)] [Electronically locked/signed by Laura Suero (01:43 12/15/2016)]
--- NOTE | 2016-12-14 20:00 | ED CLINICAL REPORT ---
Clinical Report - Physicians/Mid Levels [facility] [address] [place] [address] 12/14/2016 17:12 Patient: DAYANA BRAVO Time Seen: 17:17. Arrived- By private vehicle. Historian- patient. HISTORY OF PRESENT ILLNESS Chief Complaint: CHEST PAIN. At its maximum, severity described as moderate. When seen in the E.D., severity described as moderate. Modifying factors- (Though pt states he felt generally worse when walking.). Not worsened by anything. Not relieved by anything. This started about 2 hours ago and is still present. Onset during PT was sitting at his desk at work. It is described as pressure and "pain" and it is described as located in the left chest area and left arm. The patient has had mild difficulty breathing and mild nausea. No vomiting or diaphoresis. (PT states that after the pain had been going on for some time, he started to feel generally unwell. This was worse with walking down the mann to the exam room. Pt has a h/o HTN, but was off meds for some months. He states he just restarted his meds, except for HCTZ, several days back.). Similar symptoms previously: None. Recent medical care: Not recently seen/assessed. REVIEW OF SYSTEMS No fever, chills, cough, pedal edema or calf pain. No fainting episodes, headache, sore throat, blurred vision or abdominal pain. No black stools, difficulty with urination, skin rash, enlarged lymph nodes or joint pain. No bloody stools. All systems otherwise negative, except as recorded above. PAST HISTORY Problems: Cervical Radiculopathy. Enlarged prostate. Tetanus Status. Hypertension. Ureterolithiasis. Immunizations. Additional Surgeries: Tonsillectomy. Medications: AmLODIPine Besylate Oral. Lisinopril Oral. Allergies: No Known Drug Allergy. SOCIAL HISTORY Smoker- current status unknown. No alcohol use or drug use. ADDITIONAL NOTES The nursing notes have been reviewed. PHYSICAL EXAM Appearance: Alert. Oriented X3. No acute distress. Eyes: Pupils equal, round and reactive to light. Eyes normal inspection. ENT: Nose normal. Neck: Normal inspection. CVS: Normal heart rate and rhythm. Heart sounds normal. Pulses normal. Respiratory: No respiratory distress. Breath sounds normal. Abdomen: Soft and nontender. Back: Normal external inspection. Skin: Skin warm and dry. Normal skin color. No rash. Normal skin turgor. Extremities: Extremities exhibit normal ROM. No lower extremity edema. Neuro: Oriented X 3. No motor deficit. No sensory deficit. LABS, X-RAYS, AND EKG EKG: EKG time: (1721). No acute ischemia. Rate: 122. Regular narrow-complex tachycardia. Sinus tachycardia. Normal P waves. Normal DARIO. Normal QRS complex. Normal axis. Normal ST and T waves, QT and QTc. Prior EKG unavailable. The study has been interpreted contemporaneously by me. The study has been independently viewed by me. The EKG appears to be a good tracing. I agree with and confirm the computer reading of the EKG. Rhythm Strip #1: Time: (17:47). Rate= 107. Sinus tachycardia. Regular rhythm. Narrow QRS complexes. No ectopy. Conduction normal. Normal ST segments and T waves. The study was interpreted by me. Chest X-ray: No acute disease. Normal lung markings present. Normal heart size. Mediastinum normal. Great vessels normal. Soft tissues normal. No infiltrate. No fracture. No bony lesion present. Views: AP (portable). Technique: good. The X-rays were independently viewed by me, interpreted by the radiologist and contemporaneously by me and discussed with the radiologist. Prior films were not available for comparison. Laboratory Tests: CBC w Diff: (JULIA: 12/14/2016 17:25) ( MsgRcvd 12/14/2016 17:35) Final results Test Result Flag Units (Reference) WHITE BLOOD COUNT 12.4 H K/uL (4.5-11.5) RED BLOOD COUNT 5.75 M/uL (4.50-5.90) HEMOGLOBIN 16.0 gm/dL (13.5-17.5) HEMATOCRIT 48.5 % (41.0-53.0) MEAN CELL VOLUME 84 fL (80-100) MEAN CORPUSCULAR HGB 28 pg (26-34) MEAN CORPUSCULAR HGB CONC 33 g/dL (31-37) RED CELL DISTRIBUTION WIDTH 13.2 % (11.6-14.8) PLATELET COUNT 318 K/uL (150-400) NEUTROPHIL % 81.8 H % (50-75) LYMPH % 14.6 L % (25-40) MONO % 2.7 L % (3-14) EOSINOPHIL % 0.7 % (0-4) BASOPHIL % 0.2 % (0-2) CHEM 13 PANEL: (JULIA: 12/14/2016 17:25) ( MsgRcvd 12/14/2016 17:47) Final results Test Result Flag Units (Reference) GLUCOSE 115 H mg/dL (70-110) BUN 17 mg/dL (7-18) CREATININE 1.0 mg/dL (0.6-1.3) Estimated GFR >60 mL/min Estimated GFR- >60 mL/min Note: Persistent reduction over 3 months in eGFR<60 mL/min/1.73 m2 defines CKD. Patients with eGFR values>=60 mL/min/1.73 m2 may also have CKD if evidence ofpersistent proteinuria. Additional information may be foundat www.kidney.org. SODIUM 142 mmol/L (136-145) POTASSIUM 4.0 mmol/L (3.5-5.1) CHLORIDE 104 mmol/L (98-107) CARBON DIOXIDE 28 mmol/L (21-32) CALCIUM 9.5 mg/dL (8.5-10.1) TOTAL PROTEIN 8.5 H g/dL (6.4-8.2) ALBUMIN 4.4 g/dL (3.3-5.0) BILIRUBIN, TOTAL 0.5 mg/dL (0.0-1.0) ALKALINE PHOSPHATASE 146 H U/L (46-116) AST (SGOT) 22 U/L (15-37) ALT (SGPT) 38 U/L (12-78) CPK 92 U/L (24-260) MAGNESIUM 2.0 mg/dL (1.8-2.4) TROPONIN I <0.05 L ng/mL (0.00-1.5) TROPONIN REFERENCE RANGE:<0.1 NEGATIVE0.1-1.5 INDETERMINANT>1.5 POSITIVE . Pulse Oximetry: 12/14/2016 17:16 O2 saturation: 100%. (FIO2 - room air). Interpretation: normal. PROGRESS AND PROCEDURES Course of Care: PT had received ASA prior to checking in at the ED. He was given Lopressor and NTG, which did resolve his pain. Pt was young, but did have a concerning story and some risk factors, and I felt it best for him to be admitted to eval for ACS. Pt was agreeable to this plan. Discussed case with hospitalist, (Mario). Reviewed test results and need for additional work-up. Agreed upon treatment plan and decision to admit. Health care provider will see patient in ED. Patient counseled in person regarding the patient's stable but serious condition, test results, diagnosis and need for admission. Concerns were addressed. Old medical records reviewed. Disposition: Admitted to Acute Care. Condition: stable. CLINICAL IMPRESSION Chest pain(r/o ACS). Possible acute myocardial infarction with no ST elevation (NSTEMI). Possible angina. (Electronically signed by Drea Tomlinson MD 12/16/2016 17:33)
--- NOTE | 2016-12-14 20:00 | ED ORDER SUMMARY ---
..... Patient: DAYANA BRAVO OrderSheet [facility] VisitID: [id number] [place] [address] 31y, M Registration Date/Time: 12/14/2016 ORDER SHEET Weight: 95.2 kg (stated) Allergies: No Known Drug Allergy GENERAL ORDERS: Bone Drier (Continuous) (Chest Pain) (17:28 12/14/2016 Ike R.N. verbal order read back to Lucila ROBLERO) (17:29 Ike R.N.) Oxygen (2 L/min) (NC) (17:28 12/14/2016 Ike R.N. verbal order read back to Lucila ROBLERO) (17:29 Ike R.N.) Pulse oximeter (17:28 12/14/2016 Ike R.N. verbal order read back to Lucila ROBLERO) (17:29 Ike R.N.) EKG - ER Stat (17:28 12/14/2016 Ike R.N. verbal order read back to Lucila ROBLERO) (17:29 Ike R.N.) Cardiac Panel Stat (17:29 12/14/2016 Ike R.N. verbal order read back to Lucila ROBLERO) (17:30 Ike R.N.) MEDICATION ORDERS: NitroGLYCERIN SL 0.4 mg (Do not crush or chew, NOW, x3 PRN Chest Pain) (17:45 12/14/2016 Lucila ROBLERO) (Ack 18:21 Deidre R.N.) (18:28 Ike R.N.) Lopressor PO 50 mg (HIGH ALERT MEDICATION, NOW) (17:46 12/14/2016 Lucila ROBLERO) (Ack 18:21 Deidre R.N.) (18:27 Ike R.N.) IV FLUIDS: IV Saline Lock (17:28 12/14/2016 Ike R.N. verbal order read back to Lucila ROBLERO) (17:29 Ike R.N.) ORDER SHEET NOTES: [Electronically signed by Laura Suero (01:43 12/15/2016)] [Electronically signed by Drea Tomlinson MD (17:33 12/16/2016)] [Electronically locked/signed by Laura Suero (01:43 12/15/2016)]
--- NOTE | 2016-12-14 20:27 | History & Physical Report ---
Information Source Information Source: Self Reliability: Good History Chief Complaint Chest pain and left arm pain History of Present Illness Patient is a 31 year old male with a long standing history of hypertension that is presenting with a one day history of chest and left arm pain. Patient that he usually takes 2 blood pressure medications a day and for the past month has been not taking them every single day. Patient noticed today that he had a sudden onset of chest pressure, feeling like someone was pusing his chest as well as associated left arm pain. Both these symptoms came when patient was at rest and was not doing anything stressful. Patient became worried when the symptoms persisted. 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 Patient was brought into a patient room given medication to lower his blood pressure. When the medication began to take effect the patient noticed immediate relief of his chest pressure symptoms. Patient since then has not had any more instances of this chest pressure sensation. Patient claims that this has never happened before. Patient has no other complaints at the moment and is resting comfortably. Patient History 1. Chest pain 2. Hypertension Social History Patient is lives with his and daughter. 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 He smokes approximately 10 cigarettes/day, does not drink and uses marijuana occasionally. Patient drinks approximately 2-4 cups of coffee a day. Advance Directive None Medications and Allergies Medications Home Medications Lisinopril 2.5 mg daily Amlodopine 2.5 mg daily Current Medications Sig/Jaqui Start time Last Medication Dose Route Stop Time Status Admin Amlodipine Besylate 2.5 MG DAILY 12/15 899 AC PO Enoxaparin Sodium 40 MG QAM 12/15 899 AC SC Lisinopril 2.5 MG DAILY 12/15 899 AC PO Pantoprazole Sodium 40 MG DAILY@0600 12/15 0600 AC 12/15 Sesquihydrate PO 0513 Nitroglycerin 0.4 MG Q5M PRN 12/15 0015 AC SL Nicotine 14 MG QAM 12/14 2329 AC 12/14 TOP 2336 Acetaminophen 650 MG Q6H PRN 12/14 2029 AC PO Sodium Chloride 1,000 ML ASDIRECTED 12/14 2029 AC 12/14 IV 2130 Allergies Coded Allergies: No Known Drug Allergy (12/14/16) Review of Systems Constitutional Malaise. Denies: Fever, Chills, Sweats, Weakness, Other. Eyes Denies: Pain, Vision Change, Conjunctival Inflammation, Eyelid Inflammation, Redness, Other. ENT Denies: Ear Pain, Ear Discharge, Nose Pain, Nasal Discharge, Nasal Congestion, Mouth Pain, Mouth Swelling, Throat Pain, Throat Swelling, Other. Respiratory Denies: Cough, Dry, SOB w/exertion, Wheezing, Hemoptysis, Pleuritic Pain, Sputum , Other. Cardiovascular Chest Pain, Other (left arm pain ). Denies: Palpitations, Orthopnea, PND, Edema , Light-headedness. Gastrointestinal Denies: Nausea, Vomiting, Abdominal Pain, Diarrhea, Constipation, Melena, Hematochezia, Other. Genitourinary Denies: Dysuria, Frequency, Incontinence, Hematuria, Retention, Other. Musculoskeletal Denies: Neck Pain, Shoulder Pain, Arm Pain, Back Pain, Hand Pain, Leg Pain, Foot Pain, Other. Skin Denies: Rash, Lesions, Jaundice, Bruising, Other. Neurological Denies: Weakness, Numbness, Incoordination, Change in speech, Confusion, Seizures, Other. Physical Exam Vital Signs / I&Os Vital Signs Date Time Temp Pulse Resp B/P Pulse O2 O2 Flow FiO2 Ox Delivery Rate 12/15 0327 97.9 63 18 125/74 97 Room Air 12/14 2328 98.8 59 18 116/68 98 Room Air 12/14 2131 98.6 75 18 129/96 98 Room Air I&O 12/14 0800 12/14 1600 12/15 0000 Intake Total 0 Output Total 500 Balance -500 General Appearance Alert, Oriented X3, No acute distress HEENT Atraumatic, PERRLA, Moist mucous membranes Lungs Clear to auscultation, Normal air movement Neck Supple, No JVD, No masses Cardiovascular Normal exam, Normal S1 and S2, No murmurs, gallops, rubs, - occasional ectopic beat however otherwise regularly regular heat beat0. Abdomen Normal bowel sounds, Soft, No guarding, No rebound Extremities No cyanosis, No edema, Normal pulses, No tenderness, Strength = upper ext's, Strength = lower ext's Skin No Breakdown, No Significant Lesions Neurological Normal exam, Normal gait, Normal speech, Reflexes 2+ and equal, Cranial nerves intact, Strength 5/5 x4 ext's, No lateralizing signs Psych/Mental Status Mental status normal LAB Results Laboratory Tests 12/14 12/15 12/15 1725 0120 0540 Chemistry Plasma Sodium (136 - 145 mmol/L) 142 144 Plasma Potassium (3.5 - 5.1 mmol/L) 4.0 4.1 Plasma Chloride (98 - 107 mmol/L) 104 107 CO2 (Enzymatic) (21 - 32 mmol/L) 28 29 BUN (7 - 18 mg/dL) 17 14 Creatinine (0.6 - 1.3 mg/dL) 1.0 0.9 Est GFR ( Amer) (mL/min) >60 >60 Est GFR (Non-Af Amer) (mL/min) >60 >60 Glucose (70 - 110 mg/dL) 115 87 Plasma Calcium (8.5 - 10.1 mg/dL) 9.5 9.0 Plasma Magnesium (1.8 - 2.4 mg/dL) 2.0 Total Bilirubin (0.0 - 1.0 mg/dL) 0.5 0.5 AST (15 - 37 U/L) 22 17 ALT (12 - 78 U/L) 38 30 Alkaline Phosphatase (46 - 116 U/L) 146 120 Creatine Kinase (24 - 260 U/L) 92 Troponin (0.00 - 1.5 ng/mL) <0.05 <0.05 Total Protein (6.4 - 8.2 g/dL) 8.5 6.3 Albumin (3.3 - 5.0 g/dL) 4.4 3.5 Hematology WBC (4.5 - 11.5 K/uL) 12.4 RBC (4.50 - 5.90 M/uL) 5.75 Hgb (13.5 - 17.5 gm/dL) 16.0 Hct (41.0 - 53.0 %) 48.5 MCV (80 - 100 fL) 84 MCH (26 - 34 pg) 28 RDW (11.6 - 14.8 %) 13.2 Neut % (Auto) (50 - 75 %) 81.8 Lymph % (Auto) (25 - 40 %) 14.6 [place] % (Auto) (3 - 14 %) 2.7 Eos % (Auto) (0 - 4 %) 0.7 Baso % (Auto) (0 - 2 %) 0.2 Plt Count, EDTA (150 - 400 K/uL) 318 PUBS MCHC (31 - 37 g/dL) 33 Assessment and Plan Problem List 1. Chest pain Plan - will trend troponins 1/3 negative thus far - will have the patient scheduled for stress test - daily aspirin - morphine for pain control if severe, acetaminophen if it is not - given cardiac risk stratification patients overall risk for cardiac event is less than 4% - encourage smoking cessation 2. Hypertension Plan - Pt has an established history of hypertension - Pt has been dealing with hypertension since his teens, and has a family history of poorly controlled hypertension - Pt was hypertensive in the ER however given a stat dose of metoprolol and nitro with good results - will resume home medications and monitor bp - if continues to rise will add beta eliezer, however will wait for stress test first 3. Tobacco abuse Plan - pt acknowledges that smoking is bad for him and could lead to cardiac problems - pt is aware and will make attempts to quit
[2016-12-14 21:31] VITALS: BP 129/96
[2016-12-14 23:28] VITALS: BP 116/68
[2016-12-14] MEDS ORDERED: AMLODIPINE BES2.5 MG PO (23:53)
[2016-12-14] MEDS ORDERED: ZESTRIL2.5 MG PO (23:54)
[2016-12-14] MEDS ORDERED: NAPROSYN250 MG PO (23:55)
[2016-12-15 03:27] VITALS: BP 125/74
[2016-12-15 07:50] VITALS: BP 123/83
[2016-12-15 09:19] VITALS: BP 142/72
[2016-12-15 11:34] VITALS: BP 136/87
[2016-12-15 15:51] VITALS: BP 131/76
[2016-12-15] MEDS ORDERED: NORVASC5 MG PO (15:52)
[2016-12-15] MEDS ORDERED: NICOTINE T14 MG/24 H TOP (15:52)
[2016-12-15] MEDS ORDERED: ZESTRIL5 MG PO (15:52)
--- NOTE | 2016-12-15 17:20 | Provider's Discharge Care Plan ---
Problem, Goal, Plan Problem List 1. Hypertension Goals: Improve disease control, Prevent disease progress Instructions: Follow up as directed, Take meds as directed, Avoid processed foods 2. Tobacco abuse Goals: Improve disease control, Prevent disease progress Instructions: Follow up as directed, Take meds as directed, Stop smoking
--- NOTE | 2016-12-15 17:50 | Discharge Summary ---
Discharge Summary Report Admit Date 12/14/16 Discharge Date 12/15/16 Admission Diagnosis 1. Chest pain rule out ACS 2. Tobacco abuse 3. Hypercholesterolemia Discharge Diagnosis 1. Chest pain-ACS ruled out 2. Tobacco abuse 3. Hypercholesterolemia Brief History The patient is a 31-year-old white male with a significant past medical history of hypercholesterolemia, hypertension, nicotine dependence-smoking, who presented to [facility] emergency department on the day of admission secondary to complaints of chest pain/arm pain. [facility] ER evaluation was consistent with chest pain rule out ACS, hypertension, nicotine dependence-smoking. Secondary to the above, the patient was admitted by Jesse Martin M.D. for further evaluation and treatment. For other history present illness, past medical history, family history, social history, review of systems, and admission physical examination please see the patient's history and physical examination and ER visit note in the patient's medical record. Hospital Course The following problems and their management were noted during the patient's hospitalization: 1. Chest pain rule out ACS -The patient presented with findings of chest pain rule out ACS. He underwent serial troponin/EKG. These were inconsistent with myocardial ischemia/ infarction. The patient subsequently underwent exercise stress testing using a standard [place] protocol. This was inconsistent with myocardial ischemia. The patient was up ambulating well at the time of discharge without further chest pain. His post chest pain most likely was musculoskeletal in origin. He will follow-up with his PCP Dr. Allen next week. He was without chest pain/arm pain throughout his hospitalization. 2. Tobacco abuse The patient has a history of nicotine dependence-smoking. He underwent smoking cessation education. He was placed on NicoDerm patch for discharge. He is encouraged to follow a tobacco abstinence program post discharge. 3. Hypercholesterolemia The patient was noted in the past have findings of mild hypercholesterolemia. The patient was nonfasting at the time of my interview and no subsequent cholesterol profile was obtained. It was recommended he follow-up with his PCP Dr. Angeles for cholesterol screening next week. Lab/Imaging Laboratory Tests 12/15 12/15 12/15 12/15 1700 0905 [id number] Chemistry Plasma Sodium (136 - 145 mmol/L) 144 Plasma Potassium (3.5 - 5.1 mmol/L) 4.1 Plasma Chloride (98 - 107 mmol/L) 107 CO2 (Enzymatic) (21 - 32 mmol/L) 29 BUN (7 - 18 mg/dL) 14 Creatinine (0.6 - 1.3 mg/dL) 0.9 Est GFR ( Amer) (mL/min) >60 Est GFR (Non-Af Amer) (mL/min) >60 Glucose (70 - 110 mg/dL) 87 Plasma Calcium (8.5 - 10.1 mg/dL) 9.0 Total Bilirubin (0.0 - 1.0 mg/dL) 0.5 AST (15 - 37 U/L) 17 ALT (12 - 78 U/L) 30 Alkaline Phosphatase (46 - 116 U/L) 120 Troponin (0.00 - 1.5 ng/mL) Cancelled <0.05 <0.05 Total Protein (6.4 - 8.2 g/dL) 6.3 Albumin (3.3 - 5.0 g/dL) 3.5 Discharge Instructions/Meds For other recommendations regarding discharge diet, activity, followup, and discharge medications please see the patient's discharge instructions. Discharge condition: Good, improved Greater than 30 min. was spent in the patient's discharge preparation including discharge interview and physical examination, progress note, discharge instructions, and discharge summary The patient was interviewed and examined on the day of discharge. E&M Codes Discharge: Observation - All/[id number]
--- NOTE | 2016-12-16 17:33 | ED MED RECONCILIATION SUMMARY ---
Patient: DAYANA BRAVO Medication Reconciliation Report [facility] VisitID: [id number] [address] [place] [address] 31y, M Registration Date/Time: 12/14/2016 Weight: 95.2 kg Height/Length: 74 in. BMI: 27.0 ALLERGIES: No Known Drug Allergy The patient's Home Medications are listed below: THE FOLLOWING MEDICATIONS NEED TO BE RECONCILED: AmLODIPine Besylate Oral Lisinopril Oral The source(s) of the original Home Medication information: patient The following Medications were given to the patient in the Emergency Department: Lopressor [PO] PO 50 mg, administered: 12/14/2016 6:25:00 PM Nitroglycerin [SL] SL 0.4 mg, administered: 12/14/2016 6:28:00 PM Nitroglycerin [SL] SL 0.4 mg, administered: 12/14/2016 6:34:00 PM Nitroglycerin [SL] SL 0.4 mg, administered: 12/14/2016 6:38:00 PM The following Medications were prescribed to the patient: None.
--- NOTE | 2016-12-16 17:33 | ED MED RECONCILIATION SUMMARY ---
Patient: DAYANA BRAVO Medication Reconciliation Report [facility] VisitID: [id number] [address] [place] [address] 31y, M Registration Date/Time: 12/14/2016 Weight: 95.2 kg Height/Length: 74 in. BMI: 27.0 ALLERGIES: No Known Drug Allergy The patient's Home Medications are listed below: THE FOLLOWING MEDICATIONS NEED TO BE RECONCILED: AmLODIPine Besylate Oral Lisinopril Oral The source(s) of the original Home Medication information: patient The following Medications were given to the patient in the Emergency Department: Lopressor [PO] PO 50 mg, administered: 12/14/2016 6:25:00 PM Nitroglycerin [SL] SL 0.4 mg, administered: 12/14/2016 6:28:00 PM Nitroglycerin [SL] SL 0.4 mg, administered: 12/14/2016 6:34:00 PM Nitroglycerin [SL] SL 0.4 mg, administered: 12/14/2016 6:38:00 PM The following Medications were prescribed to the patient: None.
--- NOTE | 2016-12-16 17:33 | ED MAR SUMMARY ---
..... Medication Administration Record [facility] [address] [place] [address] Patient: DAYANA BRAVO Visit ID: [id number] 31y, M Weight: 95.2 kg Height/Length: 74 in BMI: 27 ALLERGIES: No Known Drug Allergy Given 18:25 12/14/2016 Finesse Woodward RSitaNSita Medication Administered: LOPRESSOR [PO] (METOPROLOL TARTRATE), Dose: 50 mg Oral Suspension PO. Medication Ordered: Lopressor PO 50 mg (HIGH ALERT MEDICATION, NOW). Given 18:28 12/14/2016 Finesse Woodward RSitaNSita Medication Administered: NITROGLYCERIN [SL], Dose: 0.4 mg Tablets SL. Medication Ordered: NitroGLYCERIN SL 0.4 mg (Do not crush or chew, NOW, x3 PRN Chest Pain). Given 18:34 12/14/2016 Finesse Woodward RSitaNSita Medication Administered: NITROGLYCERIN [SL], Dose: 0.4 mg Tablets SL. Medication Ordered: NitroGLYCERIN SL 0.4 mg (Do not crush or chew, NOW, x3 PRN Chest Pain). Given 18:38 12/14/2016 Finesse Woodward RSitaN. Medication Administered: NITROGLYCERIN [SL], Dose: 0.4 mg Tablets SL. Medication Ordered: NitroGLYCERIN SL 0.4 mg (Do not crush or chew, NOW, x3 PRN Chest Pain).
--- NOTE | 2016-12-16 17:33 | ED DISCHARGE INSTRUCTIONS ---
Patient: DAYANA BRAVO General Instructions [facility] VisitID: [id number] [address] [place] [address] 31y, M Registration Date/Time: 12/14/2016 Chest pain(r/o ACS). (Electronically signed by Drea Tomlinson MD 12/16/2016 17:33)
--- NOTE | 2016-12-16 17:33 | ED DISCHARGE INSTRUCTIONS ---
Patient: DAYANA BRAVO General Instructions [facility] VisitID: [id number] [address] [place] [address] 31y, M Registration Date/Time: 12/14/2016 Chest pain(r/o ACS). (Electronically signed by Drea Tomlinson MD 12/16/2016 17:33)
--- NOTE | 2016-12-16 17:33 | ED MAR SUMMARY ---
..... Medication Administration Record [facility] [address] [address] Patient: DAYANA BRAVO Visit ID: [id number] 31y, M Weight: 95.2 kg Height/Length: 74 in BMI: 27 ALLERGIES: No Known Drug Allergy Given 18:25 12/14/2016 Finesse Woodward RSitaNSita Medication Administered: LOPRESSOR [PO] (METOPROLOL TARTRATE), Dose: 50 mg Oral Suspension PO. Medication Ordered: Lopressor PO 50 mg (HIGH ALERT MEDICATION, NOW). Given 18:28 12/14/2016 Finesse Woodward RSitaNSita Medication Administered: NITROGLYCERIN [SL], Dose: 0.4 mg Tablets SL. Medication Ordered: NitroGLYCERIN SL 0.4 mg (Do not crush or chew, NOW, x3 PRN Chest Pain). Given 18:34 12/14/2016 Finesse Woodward RSitaNSita Medication Administered: NITROGLYCERIN [SL], Dose: 0.4 mg Tablets SL. Medication Ordered: NitroGLYCERIN SL 0.4 mg (Do not crush or chew, NOW, x3 PRN Chest Pain). Given 18:38 12/14/2016 Finesse Woodward RSitaN. Medication Administered: NITROGLYCERIN [SL], Dose: 0.4 mg Tablets SL. Medication Ordered: NitroGLYCERIN SL 0.4 mg (Do not crush or chew, NOW, x3 PRN Chest Pain).
== END 2016-12-15 17:30 | disposition home or self-care (01) ==
LOC: ED SRH 17:12 → TRANS SRH 19:42 → ACUTE2 SRH 19:42
PROVIDERS: ADMIT Emergency Medicine
PROC: 4A02XM4 Measurement of Cardiac Total Activity, External Approach (ICD-10-PCS; principal; 2016-12-15)
DX: R07.89 Other chest pain (principal); I10 Essential (primary) hypertension; E78.00 Pure hypercholesterolemia, unspecified; Z71.6 Tobacco abuse counseling; F17.210 Nicotine dependence, cigarettes, uncomplicated
CPT/HCPCS: 29230; 29251; 90074; 90100; 90616; 92610; 92720; 95059

== ENCOUNTER 2017-01-12 00:02 | Emergency (ER) | payer OTHER ==
[~2017-01-12 00:02] MED LIST: AMLODIPINE BES2.5 MG PO; NAPROSYN250 MG PO; NICOTINE T14 MG/24 H TOP; NORVASC5 MG PO; ZESTRIL2.5 MG PO; ZESTRIL5 MG PO
--- NOTE | 2017-01-12 02:36 | ED NURSING NOTES ---
Clinical Report - Nurses [facility] [address] [place] [address] 01/12/2017 0:04 Patient: DAYANA BRAVO TRIAGE Triage time 00:10. Acuity: LEVEL 4. Chief Complaint: NECK PAIN. Alert. No acute distress. --00:14 Maricarmen Hoffman R.N. 00:10 01/12/17. BP: 206/118. HR: 93. RR: 15. O2 saturation: 100% on room air. Temp: 98.4 F (oral). Pain level now: 4/10. Pain level at maximum: 9/10. --00:14 Maricarmen Hoffman R.N. Weight: 95.2 kg stated. Height/Length: 74 inches Per Patient. BMI: 27. --00:13 Maricarmen Hoffman R.N. Medications AmLODIPine Besylate Oral (Tablet 10 mg) 1 tablet, daily. Lisinopril Oral (Tablet 40 mg) 1 tablet, daily. --00:12 Maricarmen Hoffman R.N. Naproxen Oral (Tablet 250 mg) 2 tablets, daily. --00:13 Maricarmen Hoffman R.N. Allergies No Known Drug Allergy. --00:12 Maricarmen Hoffman R.N. History Arrived by private vehicle. Historian: patient. Primary physician (Bridgette). ( pt is beginning a new L&I claim and states he can't get a new claim started at a [facility] and Dr. Angeles can't see him right away.). Onset. (about 1 years ago (pain increasing over past week)). No history of recent trauma. PAST MEDICAL HX: Tetanus status: up-to-date. Immunizations: up-to-date. SOCIAL HX: Heavy tobacco smoker (cigarette)- less than 1 pack per day. Never smoker. History of occasional drug use: marijuana. No alcohol use. --00:14 Maricarmen Hoffman R.N. PROBLEMS: Cervical Radiculopathy. Back Pain. Enlarged prostate. Otitis Media. Hypertension. Ureterolithiasis. --00:13 Maricarmen Hoffman R.N. Angina [RuleOut]. --00:13 Maricarmen Hoffman R.N. ADDITIONAL SURGERIES: Tonsillectomy. --00:13 Maricarmen Hoffman R.N. Interventions ID band on patient. To treatment room. --00:14 Maricarmen Hoffman R.N. PHYSICAL ASSESSMENT Ambulatory to room. Patient gowned. GENERAL / NEURO / PSYCH: Alert. Oriented X 4. Appears in no acute distress. RESPIRATORY: Respirations not labored. CVS: Capillary refill less than 2 seconds. --00:14 Maricarmen Hoffman R.N. NURSING PROGRESS NOTES Head of bed elevated. Two patient identifiers checked. Call light placed in reach. Side rails up x 1. Bed placed in lowest position. Brakes of bed on. --00:14 Maricarmen Hoffman R.N. Patient ready for evaluation- chart flagged. --00:15 Maricarmen Hoffman R.N. 01:17 01/12/2017 Toradol (Ketorolac Tromethamine) IM 60 mg given. Given in the left ventral gluteus. Allergies verified and confirmed 5 rights. --01:17 Maricarmen Hoffman R.N. DISPOSITION / DISCHARGE 02:40 01/12/17. Condition at departure: stable. The goals identified in the patient's plan of care were met. No learning barriers present. Discharge instructions provided and reviewed with the patient. Reviewed medication(s) side effects, precautions, dosing and course information. Prescription(s) given to the patient. Patient verbalized understanding. Written instructions provided in Mongolian. ( Follow up with your PCP in two days. Ice or heat to affected area. Take anti-inflammatories as needed. Patient verbalized discharge instructions and had no additional questions at this time.). The patient was discharged by the physician. He was discharged home and unaccompanied at time of discharge. He left the Emergency Department ambulatory and via private vehicle. Patient driving. FALL RISK ASSESSMENT: Fall risk assessment completed. No fall risk identified. --02:58 Laura Suero 02:40 01/12/17. BP: 170/110. HR: 78. RR: 20. O2 saturation: 100% on room air. Temp: deferred. Pain level now: 11/25. --02:58 Laura Suero. Locked/Released at 01/12/2017 2:59 by Laura Suero,
--- NOTE | 2017-01-12 02:36 | ED ORDER SUMMARY ---
..... Patient: DAYANA BRAVO OrderSheet VisitID: [id number] [address] [place] [address] 31y, M Registration Date/Time: 01/12/2017 ORDER SHEET Weight: 95.2 kg (stated) Allergies: No Known Drug Allergy GENERAL ORDERS: Cervical Spine 2 or 3V Urgent (00:45 01/12/2017 Omar Naik) (Ack 0:47 Ortiz) (1:04 Cheryl) MEDICATION ORDERS: Toradol IM 60 mg (NOW) (00:45 01/12/2017 Omar Naik) (Ack 1:01 RCollier R.N.) (1:17 RCollier R.N.) IV FLUIDS: ORDER SHEET NOTES: [Electronically signed by Laura Suero (02:59 01/12/2017)] [Electronically signed by Emmanuel Denise Dr. (10:15 01/12/2017)] [Electronically locked/signed by Lauar Suero (02:59 01/12/2017)]
--- NOTE | 2017-01-12 02:36 | ED CLINICAL REPORT ---
Clinical Report - Physicians/Mid Levels [facility] [address] [place] [address] 01/12/2017 0:04 Patient: DAYANA BRAVO Time Seen: 00:28; initial patient contact. Arrived- By private vehicle. Historian- patient. HISTORY OF PRESENT ILLNESS Chief Complaint: NECK PAIN. It is described as being moderate in degree and in the area of the left side of the cervical spine, cervical spine and right side of the cervical spine. The quality is noted to be aching. No radiation. It is still present. It was gradual in onset and has been intermittent. Modifying factors- worsened by rotation of the head or neck flexion. Not relieved by anything. No bladder dysfunction, bowel dysfunction, sensory loss or motor loss. Patient denies an injury but injury to the head or chest. Similar symptoms previously: Many times. Recent medical care: Not recently seen/assessed. PAST HISTORY Cervical Radiculopathy. Back Pain. Enlarged prostate. Otitis Media. Hypertension. Ureterolithiasis. Angina ADDITIONAL SURGERIES: Tonsillectomy. SOCIAL HISTORY Never smoker. Occasional alcohol use. History of drug use: marijuana. ADDITIONAL NOTES The nursing notes have been reviewed. PHYSICAL EXAM Vital Signs: 01/12/2017 00:10 BP: 206/118. HR: 93. RR: 15. O2 saturation: 100%. Temp: 98.4 F. Pain level now: 4/10. Have been reviewed. Hypertensive. Heart rate normal. Respiratory rate normal. Temperature normal. Oxygen saturation normal. Appearance: Alert. No acute distress. HEENT: Normal external inspection. Neck: Pain in the entire posterior neck upon turning the head to the right, turning the head to the left and flexing the neck. Skin: Normal skin color. No rash. Neuro: Oriented X 3. Mood/affect normal. No motor deficit. No sensory deficit. Reflexes normal. LABS, X-RAYS, AND EKG C-Spine X-rays: No acute findings. Soft tissues normal. No fracture or subluxation. No bony lesion. Views: 3 view C-spine series. Technique: good. The X-rays were independently viewed by me and interpreted contemporaneously by me. Prior films were not available for comparison. PROGRESS AND PROCEDURES Course of Care: Toradol 60mg IM given. Physical exam findings are improved. Symptoms much better. Disposition: Discharged home in good and improved condition. CLINICAL IMPRESSION Acute cervical strain. INSTRUCTIONS Your Current Medications: STOP TAKING THE FOLLOWING MEDICATIONS: Naproxen Oral : Tablet 250 mg, 2 tablets daily. CONTINUE TAKING THE FOLLOWING MEDICATIONS: AmLODIPine Besylate Oral : Tablet 10 mg, 1 tablet daily. Lisinopril Oral : Tablet 40 mg, 1 tablet daily. Prescription Medications: Baclofen 20 mg: take 1 orally every 8 hours. Dispense twenty (20). No refills. Diclofenac 50 mg tablets: take 1 tablet orally every 8 hours as needed for pain or stiffness. Dispense thirty (30). No refill. Follow-up: Follow up with your doctor in about two days. Call for an appointment. Blood pressure screening was not performed during this visit because the patient has an active diagnosis of hypertension. (Electronically signed by Emmanuel Denise Dr. 01/12/2017 10:15)
--- NOTE | 2017-01-12 02:36 | ED CLINICAL REPORT ---
Clinical Report - Physicians/Mid Levels [facility] [address] [place] [address] 01/12/2017 0:04 Patient: DAYANA BRAVO Time Seen: 00:28; initial patient contact. Arrived- By private vehicle. Historian- patient. HISTORY OF PRESENT ILLNESS Chief Complaint: NECK PAIN. It is described as being moderate in degree and in the area of the left side of the cervical spine, cervical spine and right side of the cervical spine. The quality is noted to be aching. No radiation. It is still present. It was gradual in onset and has been intermittent. Modifying factors- worsened by rotation of the head or neck flexion. Not relieved by anything. No bladder dysfunction, bowel dysfunction, sensory loss or motor loss. Patient denies an injury but injury to the head or chest. Similar symptoms previously: Many times. Recent medical care: Not recently seen/assessed. PAST HISTORY Cervical Radiculopathy. Back Pain. Enlarged prostate. Otitis Media. Hypertension. Ureterolithiasis. Angina ADDITIONAL SURGERIES: Tonsillectomy. SOCIAL HISTORY Never smoker. Occasional alcohol use. History of drug use: marijuana. ADDITIONAL NOTES The nursing notes have been reviewed. PHYSICAL EXAM Vital Signs: 01/12/2017 00:10 BP: 206/118. HR: 93. RR: 15. O2 saturation: 100%. Temp: 98.4 F. Pain level now: 4/10. Have been reviewed. Hypertensive. Heart rate normal. Respiratory rate normal. Temperature normal. Oxygen saturation normal. Appearance: Alert. No acute distress. HEENT: Normal external inspection. Neck: Pain in the entire posterior neck upon turning the head to the right, turning the head to the left and flexing the neck. Skin: Normal skin color. No rash. Neuro: Oriented X 3. Mood/affect normal. No motor deficit. No sensory deficit. Reflexes normal. LABS, X-RAYS, AND EKG C-Spine X-rays: No acute findings. Soft tissues normal. No fracture or subluxation. No bony lesion. Views: 3 view C-spine series. Technique: good. The X-rays were independently viewed by me and interpreted contemporaneously by me. Prior films were not available for comparison. PROGRESS AND PROCEDURES Course of Care: Toradol 60mg IM given. Physical exam findings are improved. Symptoms much better. Disposition: Discharged home in good and improved condition. CLINICAL IMPRESSION Acute cervical strain. INSTRUCTIONS Your Current Medications: STOP TAKING THE FOLLOWING MEDICATIONS: Naproxen Oral : Tablet 250 mg, 2 tablets daily. CONTINUE TAKING THE FOLLOWING MEDICATIONS: AmLODIPine Besylate Oral : Tablet 10 mg, 1 tablet daily. Lisinopril Oral : Tablet 40 mg, 1 tablet daily. Prescription Medications: Baclofen 20 mg: take 1 orally every 8 hours. Dispense twenty (20). No refills. Diclofenac 50 mg tablets: take 1 tablet orally every 8 hours as needed for pain or stiffness. Dispense thirty (30). No refill. Follow-up: Follow up with your doctor in about two days. Call for an appointment. Blood pressure screening was not performed during this visit because the patient has an active diagnosis of hypertension. (Electronically signed by Emmanuel Denise Dr. 01/12/2017 10:15)
--- NOTE | 2017-01-12 02:36 | ED NURSING NOTES ---
Clinical Report - Nurses [facility] [address] [place] [address] 01/12/2017 0:04 Patient: DAYANA BRAVO TRIAGE Triage time 00:10. Acuity: LEVEL 4. Chief Complaint: NECK PAIN. Alert. No acute distress. --00:14 Maricarmen Hoffman R.N. 00:10 01/12/17. BP: 206/118. HR: 93. RR: 15. O2 saturation: 100% on room air. Temp: 98.4 F (oral). Pain level now: 4/10. Pain level at maximum: 9/10. --00:14 Maricarmen Hoffman R.N. Weight: 95.2 kg stated. Height/Length: 74 inches Per Patient. BMI: 27. --00:13 Maricarmen Hoffman R.N. Medications AmLODIPine Besylate Oral (Tablet 10 mg) 1 tablet, daily. Lisinopril Oral (Tablet 40 mg) 1 tablet, daily. --00:12 Maricarmen Hoffman R.N. Naproxen Oral (Tablet 250 mg) 2 tablets, daily. --00:13 Maricarmen Hoffman R.N. Allergies No Known Drug Allergy. --00:12 Maricarmen Hoffman R.N. History Arrived by private vehicle. Historian: patient. Primary physician (Bridgette). ( pt is beginning a new L&I claim and states he can't get a new claim started at a [facility] and Dr. Angeles can't see him right away.). Onset. (about 1 years ago (pain increasing over past week)). No history of recent trauma. PAST MEDICAL HX: Tetanus status: up-to-date. Immunizations: up-to-date. SOCIAL HX: Heavy tobacco smoker (cigarette)- less than 1 pack per day. Never smoker. History of occasional drug use: marijuana. No alcohol use. --00:14 Maricarmen Hoffman R.N. PROBLEMS: Cervical Radiculopathy. Back Pain. Enlarged prostate. Otitis Media. Hypertension. Ureterolithiasis. --00:13 Maricarmen Hoffman R.N. Angina [RuleOut]. --00:13 Maricarmen Hoffman R.N. ADDITIONAL SURGERIES: Tonsillectomy. --00:13 Maricarmen Hoffman R.N. Interventions ID band on patient. To treatment room. --00:14 Maricarmen Hoffman R.N. PHYSICAL ASSESSMENT Ambulatory to room. Patient gowned. GENERAL / NEURO / PSYCH: Alert. Oriented X 4. Appears in no acute distress. RESPIRATORY: Respirations not labored. CVS: Capillary refill less than 2 seconds. --00:14 Maricarmen Hoffman R.N. NURSING PROGRESS NOTES Head of bed elevated. Two patient identifiers checked. Call light placed in reach. Side rails up x 1. Bed placed in lowest position. Brakes of bed on. --00:14 Maricarmen Hoffman R.N. Patient ready for evaluation- chart flagged. --00:15 Maricarmen Hoffman R.N. 01:17 01/12/2017 Toradol (Ketorolac Tromethamine) IM 60 mg given. Given in the left ventral gluteus. Allergies verified and confirmed 5 rights. --01:17 Maricarmen Hoffman R.N. DISPOSITION / DISCHARGE 02:40 01/12/17. Condition at departure: stable. The goals identified in the patient's plan of care were met. No learning barriers present. Discharge instructions provided and reviewed with the patient. Reviewed medication(s) side effects, precautions, dosing and course information. Prescription(s) given to the patient. Patient verbalized understanding. Written instructions provided in Lebanese. ( Follow up with your PCP in two days. Ice or heat to affected area. Take anti-inflammatories as needed. Patient verbalized discharge instructions and had no additional questions at this time.). The patient was discharged by the physician. He was discharged home and unaccompanied at time of discharge. He left the Emergency Department ambulatory and via private vehicle. Patient driving. FALL RISK ASSESSMENT: Fall risk assessment completed. No fall risk identified. --02:58 Laura Seuro 02:40 01/12/17. BP: 170/110. HR: 78. RR: 20. O2 saturation: 100% on room air. Temp: deferred. Pain level now: 11/25. --02:58 Laura Suero. Locked/Released at 01/12/2017 2:59 by Laura Suero,
--- NOTE | 2017-01-12 02:36 | ED ORDER SUMMARY ---
..... Patient: DAYANA BRAVO OrderSheet [facility] VisitID: [id number] [address] [place] [address] 31y, M Registration Date/Time: 01/12/2017 ORDER SHEET Weight: 95.2 kg (stated) Allergies: No Known Drug Allergy GENERAL ORDERS: Cervical Spine 2 or 3V Urgent (00:45 01/12/2017 Omar Naik) (Ack 0:47 Ortiz) (1:04 Cheryl) MEDICATION ORDERS: Toradol IM 60 mg (NOW) (00:45 01/12/2017 Omar Naik) (Ack 1:01 RCollier R.N.) (1:17 RCollier R.N.) IV FLUIDS: ORDER SHEET NOTES: [Electronically signed by Laura Suero (02:59 01/12/2017)] [Electronically signed by Emmanuel Denise Dr. (10:15 01/12/2017)] [Electronically locked/signed by Laura Suero (02:59 01/12/2017)]
--- NOTE | 2017-01-12 07:51 | DIAGNOSTIC IMAGING REPORT ---
PROCEDURE: XR CERVICAL SPINE 2 OR 3 VIEW INDICATION: NECK PAIN TECHNIQUE: Three views of the cervical spine were obtained. COMPARISON: 05/07/2014 FINDINGS: The cervical vertebral bodies are normal in height and alignment. Anterior endplate spurring at C2-3 with mild disc height loss. Mild superior endplate irregularity at C4. The disk spaces are otherwise normally maintained. There is no prevertebral soft-tissue swelling or suspicious calcification. The airway is patent. The soft tissues of the neck appear normal. IMPRESSION: 1. No fracture or pathologic subluxation. 2. Chronic C2-3 degenerative changes.
--- NOTE | 2017-01-12 10:15 | ED MED RECONCILIATION SUMMARY ---
Patient: DAYANA BRAVO Medication Reconciliation Report [facility] VisitID: [id number] [address] [place] [address] 31y, M Registration Date/Time: 01/12/2017 Weight: 95.2 kg Height/Length: 74 in. BMI: 27.0 ALLERGIES: No Known Drug Allergy The patient's Home Medications are listed below: STOP TAKING THE FOLLOWING MEDICATIONS: Naproxen Oral (250 mg) 2 tablets, daily CONTINUE TAKING THE FOLLOWING MEDICATIONS: AmLODIPine Besylate Oral (10 mg) 1 tablet, daily Lisinopril Oral (40 mg) 1 tablet, daily The source(s) of the original Home Medication information: Not obtained. The following Medications were given to the patient in the Emergency Department: Toradol [IM] IM 60 mg, administered: 01/12/2017 1:17:00 AM The following Medications were prescribed to the patient: Baclofen 20 mg: take 1 orally every 8 hours. Dispense twenty (20). No refills. -- Emmanuel Denise Dr. Diclofenac 50 mg tablets: take 1 tablet orally every 8 hours as needed for pain or stiffness. Dispense thirty (30). No refill. -- Emmanuel Denise Dr.
--- NOTE | 2017-01-12 10:15 | ED MED RECONCILIATION SUMMARY ---
Patient: DAYANA BRAVO Medication Reconciliation Report [facility] VisitID: [id number] [address] [place] [address] 31y, M Registration Date/Time: 01/12/2017 Weight: 95.2 kg Height/Length: 74 in. BMI: 27.0 ALLERGIES: No Known Drug Allergy The patient's Home Medications are listed below: STOP TAKING THE FOLLOWING MEDICATIONS: Naproxen Oral (250 mg) 2 tablets, daily CONTINUE TAKING THE FOLLOWING MEDICATIONS: AmLODIPine Besylate Oral (10 mg) 1 tablet, daily Lisinopril Oral (40 mg) 1 tablet, daily The source(s) of the original Home Medication information: Not obtained. The following Medications were given to the patient in the Emergency Department: Toradol [IM] IM 60 mg, administered: 01/12/2017 1:17:00 AM The following Medications were prescribed to the patient: Baclofen 20 mg: take 1 orally every 8 hours. Dispense twenty (20). No refills. -- Emmanuel Denise Dr. Diclofenac 50 mg tablets: take 1 tablet orally every 8 hours as needed for pain or stiffness. Dispense thirty (30). No refill. -- Emmanuel Denise Dr.
--- NOTE | 2017-01-12 10:15 | ED MAR SUMMARY ---
..... Medication Administration Record [facility] [address] [place] [address] Patient: DAYANA BRAVO Visit ID: [id number] 31y, M Weight: 95.2 kg Height/Length: 74 in BMI: 27 ALLERGIES: No Known Drug Allergy Given 01:17 01/12/2017 Maricarmen Hoffman R.N. Medication Administered: TORADOL [IM] (KETOROLAC TROMETHAMINE), Dose: 60 mg IM. Medication Ordered: Toradol IM 60 mg (NOW).
--- NOTE | 2017-01-12 10:15 | ED DISCHARGE INSTRUCTIONS ---
Patient: DAYANA BRAVO General Instructions [facility] VisitID: [id number] [address] [place] [address] 31y, M Registration Date/Time: 01/12/2017 Acute cervical strain. INSTRUCTIONS Your Current Medications: STOP TAKING THE FOLLOWING MEDICATIONS: Naproxen Oral : Tablet 250 mg, 2 tablets daily. CONTINUE TAKING THE FOLLOWING MEDICATIONS: AmLODIPine Besylate Oral : Tablet 10 mg, 1 tablet daily. Lisinopril Oral : Tablet 40 mg, 1 tablet daily. Prescription Medications: Baclofen 20 mg: take 1 orally every 8 hours. Dispense twenty (20). No refills. Diclofenac 50 mg tablets: take 1 tablet orally every 8 hours as needed for pain or stiffness. Dispense thirty (30). No refill. Follow-up: Follow up with your doctor in about two days. Call for an appointment. Blood pressure screening was not performed during this visit because the patient has an active diagnosis of hypertension. ADDITIONAL INFORMATION Neck Sprain Or Strain A sudden force that causes turning or bending of the neck (such as in a car accident) can stretch or tear muscles (strain) and ligaments (sprain) and cause neck pain. Sometimes neck pain occurs after a simple awkward movement. In either case, muscle spasm is commonly present and contributes to the pain. Unless you had a forceful physical injury (for example, a car accident or fall), X-rays are usually not ordered for the initial evaluation of neck pain. If pain continues and dose not respond to medical treatment, X-rays and other tests may be performed at a later time. Home care The following guidelines will help you care for your injury at home: You may feel more soreness and spasm the first few days after the injury. Reduce your activity level until symptoms begin to improve. When lying down, use a comfortable pillow that supports the head and keeps the spine in a neutral position. The position of the head should not be tilted forward or backward. Use ice packs (ice in a plastic bag, wrapped in a towel) to treat acute pain. Apply for 20 minutes every 24 hours during the first two days. Then, begin local heat (hot shower, hot bath or heating pad) andmassageto reduce muscle spasm. Some patients feel best alternating hot and cold treatments, or just staying with one method only. Do what feels the best to you and gives the most relief. You may use acetaminophen or ibuprofen to control pain, unless another pain medicine was prescribed.If you have chronic liver or kidney disease or ever had a stomach ulcer or GI bleeding, talk with your doctor before using these medicines. Follow-up care Follow up with your physician or this facility if your symptoms do not show signs of improvement. Physical therapy may be needed. If you had X-rays today, they didnt show any broken bones, breaks, or fractures. Sometimes fractures dont show up on the first X-ray. Bruises and sprains can sometimes hurt as much as a fracture. These injuries can take time to heal completely. If your symptoms dont improve or they get worse, talk with your doctor. You may need a repeat X-ray. When to seek medical care Get prompt medical attention if any of the following occur: Pain becomes worse or spreads into your arms Weakness or numbness in one or both arms You have been given the following additional information: Neck Sprain/Strain (Electronically signed by Emmanuel Denise Dr. 01/12/2017 10:15)
--- NOTE | 2017-01-12 10:15 | ED MAR SUMMARY ---
..... Medication Administration Record [facility] [address] [address] Patient: DAYANA BRAVO Visit ID: [id number] 31y, M Weight: 95.2 kg Height/Length: 74 in BMI: 27 ALLERGIES: No Known Drug Allergy Given 01:17 01/12/2017 Maricarmen Hoffman R.N. Medication Administered: TORADOL [IM] (KETOROLAC TROMETHAMINE), Dose: 60 mg IM. Medication Ordered: Toradol IM 60 mg (NOW).
== END 2017-01-12 02:40 | disposition home or self-care (01) ==
LOC: ED SRH 00:02
DX: S16.1XXA Strain of muscle, fascia and tendon at neck level, initial encounter (principal); X58.XXXA Exposure to other specified factors, initial encounter; Y93.9 Activity, unspecified; Y92.9 Unspecified place or not applicable; Y99.9 Unspecified external cause status; I10 Essential (primary) hypertension; Z79.899 Other long term (current) drug therapy

== ENCOUNTER 2017-03-17 15:55 | Outpatient (CLI) | payer SELFPAY | END 2017-03-17 23:00 | LOC: LAB SRH 15:55 | DX: Z01.84 Encounter for antibody response examination (principal) | CPT/HCPCS: 90074; 90229; 90248; 90851 ==